=== PATIENT | male | born 1980 | race Caucasian/White ===

== ENCOUNTER 2020-07-30 13:41 | Inpatient (IN) | payer BC, OTHER ==
[~2020-07-30] VITALS: Ht 177.8 cm; Wt 180.5 kg
[2020-07-30] MEDS ORDERED: ALBUTEROL/IPRATROPIUM 2.5MG/0.5MG, 3 ML NPPB ONE (14:00)
[2020-07-30] MEDS ORDERED: SODIUM CHLORIDE FLUSH 10ML SYR IVF ONE (14:00)
[2020-07-30] MEDS ORDERED: SODIUM CHLORIDE 0.9% 1,000ML IVBOLUS ONE (14:00)
[2020-07-30] MEDS ORDERED: ALBUTEROL/IPRATROPIUM 2.5MG/0.5MG, 3 ML ONE (14:16)
[2020-07-30] MEDS ORDERED: ACETAMINOPHEN 500 MG TABLET ONE (14:16)
[2020-07-30 14:24] LABS: MEAN CORPUSCULAR HEMOGLOBIN 23.4 pg (27.5-34.5); MEAN CORPUSCULAR HGB CONC 32.2 g/dL (33.2-36.2); MEAN PLATELET VOLUME 6.5 fL (7.4-10.4); PLATELET COUNT 398 x10^3/uL (130-400); RED BLOOD COUNT 5.43 x10^6/uL (4.38-5.82); RED CELL DISTRIBUTION WIDTH 17.5 % (9.4-14.8)
--- NOTE | 2020-07-30 14:29 | NUR ---
PT TOLERATING BREATHING TX WELL. RESPIRATIONS SLOWING. IVF INFUSING PER EMAR. LABS DRAWN, SECOND IV START. SIDE RAIL UP.
[2020-07-30] MEDS ORDERED: ACETAMINOPHEN 500 MG TABLET PO ONE (14:30)
[2020-07-30 14:33] LABS: ALANINE AMINOTRANSFERASE 34 U/L (12-78); ALBUMIN 2.9 g/dL (3.4-5.0); ANION GAP 7 mmol/L (5-15); CALCIUM 8.2 mg/dL (8.5-10.1); CHLORIDE 103 mmol/L (98-107); CREATININE 1.25 mg/dL (0.7-1.3)
[2020-07-30 14:37] LABS: ALKALINE PHOSPHATASE 61 U/L (45-117); BILIRUBIN,TOTAL 0.5 mg/dL (0.2-1.0); TOTAL PROTEIN 6.8 g/dL (6.4-8.2)
[2020-07-30 14:41] LABS: TROPONIN I 0.134 ng/mL (0.000-0.045)
[2020-07-30] MEDS ORDERED: ASPIRIN 81 MG TABLET CHEW PO ONE (15:00)
[2020-07-30] MEDS ORDERED: CEFTRIAXONE PMX 1GM/50ML 50 ML IV ONE (15:00)
[2020-07-30 15:05] LABS: MD YES
[2020-07-30 15:08] LABS: BAND#(MANUAL) 1.02 x10^3/uL; BANDS%(MANUAL) 10 % (0-7); LYMPH#(MANUAL) 1.12 x10^3/uL (1-3.4); LYMPHS% (MANUAL) 11 % (22-44); METAMYELOCYTES% (MANUAL) 1 % (0-1); MONOS#(MANUAL) 0.92 x10^3/uL (0.3-2.7); MONOS% (MANUAL) 9 % (2-9); SEG#(MANUAL) 7.04 x10^3/uL (1.8-6.8); SEGS% (MANUAL) 69 % (42-75)
[2020-07-30 15:09] LABS: <PLATELET ESTIMATE> ADEQUATE; <PLT MORPHOLOGY> NORMAL PLT MORPH; <RBC MORPHOLOGY> NORMAL
--- NOTE | 2020-07-30 15:10 | NUR ---
Report from Cira rn With assessment-Patient tachypnieic ([id number], room air saturation rechecked- 88%) To call RT to optimize (optiflow) Erp asked about aspirin for elevated troponin
[2020-07-30] MEDS ORDERED: KETOROLAC 30 MG/1 ML ONE (15:28)
[2020-07-30] MEDS ORDERED: CEFTRIAXONE PMX 1GM/50ML 50 ML ONE (15:28)
[2020-07-30] MEDS ORDERED: ASPIRIN 81 MG TABLET CHEW ONE (15:28)
[2020-07-30] MEDS ORDERED: REMDESIVIR 200 MG in SODIUM CHLORIDE 0.9% 250 ML IVPB ONE (15:30)
[2020-07-30] MEDS ORDERED: KETOROLAC 30 MG/1 ML IVPush ONE (15:30)
--- NOTE | 2020-07-30 15:55 | NUR ---
MEDICATED PER EMAR: ABX FOR PNA (/2), TORADOL FOR CHEST WALL PAIN, ASA FOR ELEVATED TROPONIN (REPEAT EKG OBTAINED WELL) NON DESTRUCTIVE TESTING SUPERVISOR VOICED CONCERNS FOR PATIENT'S CONTINUED TACHYPNEA WITH HOSPITALIST (NON DESTRUCTIVE TESTING SUPERVISOR WORRIED PATIENT WILL GET TIRED LATER THIS EVENING). ASKED SPECIFICALLY FOR RT CONSULT/ VBG. HOSPITALIST AGREEABLE
[2020-07-30] MEDS ORDERED: ACETAMINOPHEN 325 MG TABLET PO PRN (16:00)
[2020-07-30] MEDS ORDERED: PHARMACY MAY ADJ FOR RENAL FX MC PRN (16:00)
[2020-07-30] MEDS ORDERED: LISI-170 PO (16:05)
[2020-07-30] MEDS ORDERED: CYCL10TA2 PO (16:05)
[2020-07-30] MEDS ORDERED: OMEP-110 PO (16:05)
[2020-07-30] MEDS ORDERED: ZOLP10TA PO (16:05)
[2020-07-30] MEDS ORDERED: CLON0.5T PO (16:05)
[2020-07-30] MEDS ORDERED: TEST100V2 INJ (16:05)
--- NOTE | 2020-07-30 16:05 | NUR ---
SHAWNA YEUNG COMPLETED LAB AT BEDSIDE FOR VBG TO CT AT 1510
--- NOTE | 2020-07-30 16:32 | NUR ---
RT AT BEDSIDE- TO PLACE PATIEN ON HOME CPAP SETTING ([id number]) ABX 06/19 STARTED REPORT CALLED TO INPATIENT RN Addendum: 07/30/20 at 1706 by LARRY INPATIENT RN AGREEABLE TO START ANTIVIRAL ONCE PATIENT TO INPATIENT ROOM
[2020-07-30] MEDS ORDERED: OMNIPAQUE 350 MG/ML, 150 ML BOTTLE ONE (16:33)
[2020-07-30] MEDS: DOXYCYCLINE 100 MG in DEXTROSE 5% 250 ML IV SCH (16:36)
[2020-07-30 16:59] LABS: HCT (SEDRATE) 39.5 % (39.2-51.8)
[2020-07-30 17:10] VITALS: BP 132/67
[2020-07-30] MEDS: HEPARIN 5,000 UNITS/ML, 1ML SQ SCH (18:32)
[2020-07-30 19:56] VITALS: BP 114/76
[2020-07-30 20:52] LABS: TROPONIN I 0.113 ng/mL (0.000-0.045)
[2020-07-31 02:21] VITALS: BP 127/81
[2020-07-31] MEDS: HEPARIN 5,000 UNITS/ML, 1ML SQ SCH ×3 (02:21→18:34)
[2020-07-31 03:22] LABS: MEAN CORPUSCULAR HEMOGLOBIN 23.5 pg (27.5-34.5); MEAN CORPUSCULAR HGB CONC 31.9 g/dL (33.2-36.2); MEAN PLATELET VOLUME 6.8 fL (7.4-10.4); PLATELET COUNT 382 x10^3/uL (130-400); RED BLOOD COUNT 5.22 x10^6/uL (4.38-5.82); RED CELL DISTRIBUTION WIDTH 17.4 % (9.4-14.8)
[2020-07-31 03:29] LABS: ALANINE AMINOTRANSFERASE 32 U/L (12-78); ALBUMIN 2.6 g/dL (3.4-5.0); ANION GAP 7 mmol/L (5-15); CALCIUM 8.2 mg/dL (8.5-10.1); CHLORIDE 108 mmol/L (98-107); CREATININE 1.15 mg/dL (0.7-1.3)
[2020-07-31 03:37] LABS: ALKALINE PHOSPHATASE 56 U/L (45-117); BILIRUBIN,TOTAL 0.3 mg/dL (0.2-1.0); CREATINE KINASE, TOTAL 310 U/L (39-308); TOTAL PROTEIN 6.7 g/dL (6.4-8.2)
[2020-07-31 04:02] LABS: MD YES
[2020-07-31 04:10] LABS: BAND#(MANUAL) 0.33 x10^3/uL; BANDS%(MANUAL) 4 % (0-7); LYMPHS% (MANUAL) 6 % (22-44); METAMYELOCYTES# (MANUAL) 0.08 x10^3/uL (0-0); METAMYELOCYTES% (MANUAL) 1 % (0-1); MONOS#(MANUAL) 0.58 x10^3/uL (0.3-2.7); MONOS% (MANUAL) 7 % (2-9); MYELOCYTES# (MANUAL) 0.08 x10^3/uL (0-0); MYELOCYTES% (MANUAL) 1 % (0-0); SEG#(MANUAL) 6.72 x10^3/uL (1.8-6.8); SEGS% (MANUAL) 81 % (42-75)
[2020-07-31 04:11] LABS: <PLATELET ESTIMATE> ADEQUATE; MICROCYTOSIS 1+; SMALL PLATELETS 1+
[2020-07-31] MEDS: DOXYCYCLINE 100 MG in DEXTROSE 5% 250 ML IV SCH ×2 (05:12→17:04)
[2020-07-31 05:18] LABS: ALANINE AMINOTRANSFERASE 29 U/L (12-78); ALBUMIN 2.6 g/dL (3.4-5.0); ANION GAP 9 mmol/L (5-15); CALCIUM 8.4 mg/dL (8.5-10.1); CHLORIDE 108 mmol/L (98-107); CREATININE 1.14 mg/dL (0.7-1.3)
[2020-07-31 05:21] LABS: ALKALINE PHOSPHATASE 53 U/L (45-117); BILIRUBIN,TOTAL 0.3 mg/dL (0.2-1.0); TOTAL PROTEIN 6.8 g/dL (6.4-8.2)
[2020-07-31 06:49] VITALS: BP 137/82
[2020-07-31] MEDS: DEXAMETHASONE 4 MG/ML, 1ML IVPush SCH (10:13)
[2020-07-31] MEDS: ZINC SULFATE 220 MG CAPSULE PO SCH (10:14)
[2020-07-31] MEDS: CHOLECALCIFEROL 5,000u TAB PO SCH (10:14)
[2020-07-31] MEDS: ASCORBIC ACID 500 MG TABLET PO SCH (10:14)
[2020-07-31 13:46] VITALS: BP 128/68
[2020-07-31] MEDS: REMDESIVIR 100 MG in SODIUM CHLORIDE 0.9% 250 ML IVPB SCH (19:08)
[2020-07-31 20:20] VITALS: BP 134/75
[2020-08-01 02:07] VITALS: BP 134/81
[2020-08-01] MEDS: HEPARIN 5,000 UNITS/ML, 1ML SQ SCH ×3 (02:07→17:03)
[2020-08-01] MEDS: DOXYCYCLINE 100 MG in DEXTROSE 5% 250 ML IV SCH ×2 (04:31→17:03)
[2020-08-01 05:58] LABS: C-REACTIVE PROTEIN, QUANT 6.4 mg/dL (0.02-0.49)
[2020-08-01 06:11] LABS: CHLORIDE 108 mmol/L (98-107)
[2020-08-01 06:26] LABS: ALANINE AMINOTRANSFERASE 32 U/L (12-78); ALBUMIN 2.6 g/dL (3.4-5.0); ALKALINE PHOSPHATASE 55 U/L (45-117); ANION GAP 8 mmol/L (5-15); BILIRUBIN,TOTAL 0.6 mg/dL (0.2-1.0); CALCIUM 8.6 mg/dL (8.5-10.1); CREATININE 1.11 mg/dL (0.7-1.3); TOTAL PROTEIN 6.9 g/dL (6.4-8.2)
[2020-08-01 07:17] VITALS: BP 129/66
[2020-08-01] MEDS: ZINC SULFATE 220 MG CAPSULE PO SCH (09:07)
[2020-08-01] MEDS: ASCORBIC ACID 500 MG TABLET PO SCH (09:07)
[2020-08-01] MEDS: CHOLECALCIFEROL 5,000u TAB PO SCH (09:07)
[2020-08-01] MEDS: DEXAMETHASONE 4 MG/ML, 1ML IVPush SCH (09:08)
[2020-08-01 09:35] VITALS: BP 143/80
[2020-08-01 13:04] VITALS: BP 128/76
[2020-08-01] MEDS: REMDESIVIR 100 MG in SODIUM CHLORIDE 0.9% 250 ML IVPB SCH (18:35)
[2020-08-01 20:22] VITALS: BP 134/77
[2020-08-01] MEDS: ZOLPIDEM 10MG TABLET PO PRN (21:29)
[2020-08-02 01:51] VITALS: BP 128/84
[2020-08-02] MEDS: HEPARIN 5,000 UNITS/ML, 1ML SQ SCH ×3 (02:18→18:24)
[2020-08-02] MEDS: DOXYCYCLINE 100 MG in DEXTROSE 5% 250 ML IV SCH (05:22)
[2020-08-02 06:21] LABS: CHLORIDE 106 mmol/L (98-107)
[2020-08-02 06:27] LABS: ALANINE AMINOTRANSFERASE 35 U/L (12-78); ALBUMIN 2.6 g/dL (3.4-5.0); ALKALINE PHOSPHATASE 57 U/L (45-117); ANION GAP 7 mmol/L (5-15); BILIRUBIN,TOTAL 0.4 mg/dL (0.2-1.0); CREATININE 1.24 mg/dL (0.7-1.3); TOTAL PROTEIN 6.7 g/dL (6.4-8.2)
[2020-08-02 08:21] VITALS: BP 129/78
[2020-08-02] MEDS: CHOLECALCIFEROL 5,000u TAB PO SCH (08:38)
[2020-08-02] MEDS: ZINC SULFATE 220 MG CAPSULE PO SCH (08:38)
[2020-08-02] MEDS: ASCORBIC ACID 500 MG TABLET PO SCH (08:38)
[2020-08-02] MEDS: DEXAMETHASONE 4 MG/ML, 1ML IVPush SCH (09:12)
[2020-08-02 12:46] VITALS: BP 165/84
[2020-08-02] MEDS: REMDESIVIR 100 MG in SODIUM CHLORIDE 0.9% 250 ML IVPB SCH (18:27)
[2020-08-02 20:20] VITALS: BP 135/65
[2020-08-02] MEDS: DOXYCYCLINE 100MG TABLET PO SCH (20:34)
[2020-08-02] MEDS: ZOLPIDEM 10MG TABLET PO PRN (20:44)
[2020-08-03 01:31] VITALS: BP 137/86
[2020-08-03] MEDS: HEPARIN 5,000 UNITS/ML, 1ML SQ SCH ×2 (02:03→09:11)
[2020-08-03 05:20] LABS: ALANINE AMINOTRANSFERASE 47 U/L (12-78); ALBUMIN 2.7 g/dL (3.4-5.0); ANION GAP 7 mmol/L (5-15); CALCIUM 8.9 mg/dL (8.5-10.1); CHLORIDE 108 mmol/L (98-107)
[2020-08-03 05:23] LABS: ALKALINE PHOSPHATASE 61 U/L (45-117); BILIRUBIN,TOTAL 0.3 mg/dL (0.2-1.0)
[2020-08-03 05:37] LABS: C-REACTIVE PROTEIN, QUANT 1.7 mg/dL (0.02-0.49)
[2020-08-03 08:40] VITALS: BP 126/78
[2020-08-03] MEDS: CHOLECALCIFEROL 5,000u TAB PO SCH (09:00)
[2020-08-03] MEDS: DEXAMETHASONE 4 MG/ML, 1ML IVPush SCH (09:09)
[2020-08-03] MEDS: DOXYCYCLINE 100MG TABLET PO SCH (09:09)
[2020-08-03] MEDS: ZINC SULFATE 220 MG CAPSULE PO SCH (09:10)
[2020-08-03] MEDS: ASCORBIC ACID 500 MG TABLET PO SCH (09:10)
[2020-08-03] MEDS: REMDESIVIR 100 MG in SODIUM CHLORIDE 0.9% 250 ML IVPB SCH (10:57)
[2020-08-03] MEDS ORDERED: CHOL500045 PO (13:03)
[2020-08-03] MEDS ORDERED: ASCO500T9 PO (13:03)
[2020-08-03] MEDS ORDERED: ZINC220C8 PO (13:03)
== END 2020-08-03 14:08 | disposition home or self-care (01) | DRG 871 ==
LOC: SUATTDRO 15:14 → ED 15:20 → EDIP 15:21 → ED 15:33 → 4WST 17:08
PROVIDERS: ADMIT Hospitalist; ATTEND Family Medicine
PROC: XW033E5 Introduction of Remdesivir Anti-infective into Peripheral Vein, Percutaneous Approach, New Technology Group 5 (ICD-10-PCS; principal; 2020-07-30)
PROC: 5A09357 Assistance with Respiratory Ventilation, Less than 24 Consecutive Hours, Continuous Positive Airway Pressure (ICD-10-PCS; 2020-07-31)
PROC: 5A09357 Assistance with Respiratory Ventilation, Less than 24 Consecutive Hours, Continuous Positive Airway Pressure (ICD-10-PCS; 2020-08-02)
PROC: 5A09357 Assistance with Respiratory Ventilation, Less than 24 Consecutive Hours, Continuous Positive Airway Pressure (ICD-10-PCS; 2020-08-03)
DX: A41.9 Sepsis, unspecified organism (principal); J12.82 Pneumonia due to coronavirus disease 2019; J96.01 Acute respiratory failure with hypoxia; U07.1 COVID-19; I21.A1 Myocardial infarction type 2; E87.1 Hypo-osmolality and hyponatremia; Z68.43 Body mass index [BMI] 50.0-59.9, adult; R65.20 Severe sepsis without septic shock; I10 Essential (primary) hypertension; E66.01 Morbid (severe) obesity due to excess calories; J42 Unspecified chronic bronchitis; J45.909 Unspecified asthma, uncomplicated; Z82.49 Family history of ischemic heart disease and other diseases of the circulatory system
CPT/HCPCS: 36415; 36600; 71045; 71275; 80053; 82550; 82803; 83605; 83735; 83880; 84100; 84443; 84484; 85025; 85379; 85384; 85651; 86140; 87040; 93005; 94660; 96361; 96372; 96374; 99291; G0378; J0696; J1100; J1644; J1885; J7060; Q9967; J7030; J7050; J7512